=== PATIENT | male | born 1980 | race African-American/Black ===

== ENCOUNTER 2018-03-04 09:01 | Observation (INO) | payer SELFPAY ==
[~2018-03-04] VITALS: Ht 185.4 cm; Wt 97.0 kg
[~2018-03-04 09:01] MED LIST: AMOX500T PO; CYCL-36 PO; DICL-86 PO; Z.0.NO CURRENT MEDS
[2018-03-04 09:15] VITALS: BP 143/83; PULSE 63; RESP 20; TEMP 98; O2SAT 100
[2018-03-04] MEDS ORDERED: METOCLOPRAMIDE HCL 10 MG/2 ML VIAL IV PUSH ONE (09:30)
[2018-03-04 09:37] VITALS: RESP 20; O2SAT 98
[2018-03-04] MEDS ORDERED: PREG25 PO (09:41)
[2018-03-04 09:43] LABS: AUTOMATED NEUTROPHIL # 2.9 TH/MM3 (1.8-7.7); BASOPHIL % 0.7 % (0.0-2.0); EOSINOPHIL % 0.6 % (0.0-4.0); HEMOGLOBIN 16.6 GM/DL (13.0-17.0); LYMPH % 38.8 % (9.0-44.0); LYMPHOCYTE # 2.5 TH/MM3 (1.0-4.8); MEAN CELL VOLUME 83.1 FL (80.0-100.0); MEAN CORPUSCULAR HEMOGLOBIN 27.5 PG (27.0-34.0); MEAN CORPUSCULAR HGB CONC 33.2 % (32.0-36.0); MONO % 13.7 % (0.0-8.0); MONOCYTE # 0.9 TH/MM3 (0-0.9); NEUT % 46.2 % (16.0-70.0); PLATELET COUNT 216 TH/MM3 (150-450); RED BLOOD COUNT 6.02 MIL/MM3 (4.50-5.90); RED CELL DISTRIBUTION WIDTH 14.5 % (11.6-17.2); WHITE BLOOD COUNT 6.4 TH/MM3 (4.0-11.0)
[2018-03-04 10:00] LABS: BICARBONATE 22.6 MEQ/L (21.0-32.0); BLOOD UREA NITROGEN 6 MG/DL (7-18); CALCIUM 8.9 MG/DL (8.5-10.1); CHLORIDE 107 MEQ/L (98-107); CREATININE 1.39 MG/DL (0.60-1.30); GLOMERULAR FILTRATION RATE 70 ML/MIN (>89); GLUCOSE,RANDOM 155 MG/DL (74-106); SODIUM (NA) 142 MEQ/L (136-145)
[2018-03-04] MEDS ORDERED: PROMETHAZINE INJ 25 MG/ML VIAL IM ONE (10:00)
[2018-03-04 10:03] LABS: TROPONIN I LESS THAN 0.02 NG/ML (0.02-0.05)
--- NOTE | 2018-03-04 10:04 | RADRPT ---
EXAM DATE: 03/04/2018 9:50 AM EDT AGE/SEX: 37 years / Male INDICATIONS: Lower abdominal and chest pain since 6am today, nausea and vomiting CLINICAL DATA: This is the patient's initial encounter. Patient reports that signs and symptoms have been present for 1 day and indicates a pain score of 10/10. MEDICAL/SURGICAL HISTORY: None. None. COMPARISON: No prior [place] exams available for comparison. FINDINGS: A single AP view of the chest demonstrates the lungs to be symmetrically aerated without evidence of mass, infiltrate or effusion. The cardiomediastinal contours are unremarkable. Osseous structures a re intact. CONCLUSION: 1. No acute cardiopulmonary disease. Electronically signed by: Lee Solano MD 03/04/2018 10:02 AM EDT
[2018-03-04] MEDS ORDERED: SODIUM CHLOR 0.9% 1000 ML INJ 1,000 ML IV ONE (10:15)
--- NOTE | 2018-03-04 10:23 | PD ---
HPI Chief Complaint: GI Complaint Time Seen by Provider: 09:49 Travel History International Travel<30 days: No Contact w/Intl Traveler<30days: No Traveled to known affect area: No History of Present Illness HPI 37 y/o male presents with nonbloody vomiting and diarrhea with intermittent abdominal cramping since last night. He denies other concurrent complaints. He states that he had Sonic last night and does not know if that is related. He states someone else went with him but they did not have the same type of food. History is limited from patient as he is currently on bedside commode with active diarrhea. PFSH Past Medical History Depression: Yes Diabetes: Yes Patient Takes Glucophage: No Diminished Hearing: No Tetanus Vaccination: Unknown Influenza Vaccination: No Past Surgical History Surgical History: No Previous Surgery Social History Alcohol Use: Yes (OCASSIONALLY) Tobacco Use: Yes (10/10 PPD) Substance Use: Yes (MARIJUANA OCCASIONAL) Allergies-Medications (Allergen,Severity, Reaction): Coded Allergies: No Known Allergies (Unverified Allergy, Unknown, 03/04/18) Reported Meds & Prescriptions Reported Meds & Active Scripts Active Reported Lyrica (Pregabalin) 25 Mg Cap 25 Mg PO DAILY Review of Systems Except as stated in HPI: all other systems reviewed are Neg Physical Exam Exam Limitations: Other: (On bedside commode) Narrative GENERAL: 37-year-old male in no apparent distress SKIN: Focused skin assessment warm/dry. HEAD: Atraumatic. Normocephalic. EYES: Pupils equal and round. No scleral icterus. No injection or drainage. ENT: No nasal bleeding or discharge. Mucous membranes pink and moist. NECK: Trachea midline. No JVD. CARDIOVASCULAR: Regular rate and rhythm. RESPIRATORY: No accessory muscle use. Clear to auscultation. Breath sounds equal bilaterally. GASTROINTESTINAL: Abdomen soft, non-tender, nondistended. MUSCULOSKELETAL: No obvious deformities. No clubbing. No cyanosis. No edema. NEUROLOGICAL: Awake and alert. No obvious cranial nerve deficits. Motor grossly within normal limits. Normal speech. PSYCHIATRIC: Appropriate mood and affect; insight and judgment normal. Data Data Last Documented VS Vital Signs Date Time Temp Pulse Resp B/P (MAP) Pulse Ox O2 Delivery O2 Flow Rate FiO2 03/04/18 10:30 97.5 60 19 133/98 (110) 98 Room Air Orders Orders Electrocardiogram (03/04/18 09:20) Complete Blood Count With Diff (03/04/18 09:20) Basic Metabolic Panel (Bmp) (03/04/18 09:20) Ckmb (Isoenzyme) Profile (03/04/18 09:20) Troponin I (03/04/18 09:20) Chest, Single Ap (03/04/18 09:20) Iv Access Insert/Monitor (03/04/18 09:20) Ecg Monitoring (03/04/18 09:20) Oxygen Administration (03/04/18 09:20) Oximetry (03/04/18 09:20) Metoclopramide Inj (Reglan Inj) (03/04/18 09:30) Lipase (03/04/18 09:29) Hepatic Functional Panel (03/04/18:29) Drug Screen, Random Urine (03/04/18 09:42) Promethazine Inj (Phenergan Inj) (03/04/18 10:00) CKMB (03/04/18 09:30) CKMB% (03/04/18 09:30) Sodium Chlor 0.9% 1000 Ml Inj (Ns 1000 M (03/04/18 10:15) Pregabalin (Lyrica) (03/05/18 09:00) Admit Order (Ed Use Only) (03/04/18 11:47) Labs Laboratory Tests Test 03/04/18 09:30 White Blood Count 6.4 TH/MM3 Red Blood Count 6.02 MIL/MM3 Hemoglobin 16.6 GM/DL Hematocrit 50.0 % Mean Corpuscular Volume 83.1 FL Mean Corpuscular Hemoglobin 27.5 PG Mean Corpuscular Hemoglobin Concent 33.2 % Red Cell Distribution Width 14.5 % Platelet Count 216 TH/MM3 Mean Platelet Volume 9.0 FL Neutrophils (%) (Auto) 46.2 % Lymphocytes (%) (Auto) 38.8 % Monocytes (%) (Auto) 13.7 % Eosinophils (%) (Auto) 0.6 % Basophils (%) (Auto) 0.7 % Neutrophils # (Auto) 2.9 TH/MM3 Lymphocytes # (Auto) 2.5 TH/MM3 Monocytes # (Auto) 0.9 TH/MM3 Eosinophils # (Auto) 0.0 TH/MM3 Basophils # (Auto) 0.0 TH/MM3 CBC Comment DIFF FINAL Differential Comment Blood Urea Nitrogen 6 MG/DL Creatinine 1.39 MG/DL Random Glucose 155 MG/DL Calcium Level 8.9 MG/DL Sodium Level 142 MEQ/L Potassium Level 3.6 MEQ/L Chloride Level 107 MEQ/L Carbon Dioxide Level 22.6 MEQ/L Anion Gap 12 MEQ/L Estimat Glomerular Filtration Rate 70 ML/MIN Total Bilirubin 0.3 MG/DL Direct Bilirubin 0.1 MG/DL Indirect Bilirubin 0.2 MG/DL Aspartate Amino Transf (AST/SGOT) 18 U/L Alanine Aminotransferase (ALT/SGPT) 31 U/L Alkaline Phosphatase 81 U/L Total Creatine Kinase 223 U/L Creatine Kinase MB 1.2 NG/ML Troponin I LESS THAN 0.02 NG/ML Total Protein 7.5 GM/DL Albumin 3.8 GM/DL Lipase 98 U/L [facility] Medical Decision Making Medical Screen Exam Complete: Yes Emergency Medical Condition: Yes Medical Record Reviewed: Yes (Past history confirmed) Interpretation(s) CBC & BMP Diagram 03/04/18 09:30 Calcium Level 8.9 Differential Diagnosis Gastroenteritis, colitis, dehydration Narrative Course We will add on LFTs and lipase to original protocol ordered and give Phenergan as patient is vomiting despite 8 mg of Zofran and 10 mg of Reglan Patient still vomiting despite Phenergan and multiple medications. Will place in observation Physician Communication Physician Communication dr brock agrees to admit Diagnosis Primary Impression: Vomiting and diarrhea Admitting Information Admitting Physician Requests: Observation Sena Valenzuela MD March 04, 2018 10:23
[2018-03-04 10:30] VITALS: BP 133/98; PULSE 60; RESP 19; TEMP 97.5; O2SAT 98
[2018-03-04 11:20] LABS: ALBUMIN 3.8 GM/DL (3.4-5.0); DIRECT BILIRUBIN ADULT 0.1 MG/DL (0.0-0.2)
[2018-03-04 11:21] LABS: INDIRECT BILIRUBIN 0.2 MG/DL (0.0-0.8); TOTAL BILIRUBIN ADULT 0.3 MG/DL (0.2-1.0); TOTAL PROTEIN 7.5 GM/DL (6.4-8.2)
--- NOTE | 2018-03-04 11:48 | HHI.HP ---
[facility] No Primary Care Physician Admission Diagnosis Intractable vomiting and diarrhea Diagnoses: Chief Complaint: nausea/vomiting Travel History International Travel<30 Days: No Contact w/Intl Traveler <30 Da: No Traveled to Known Affected Are: No History of Present Illness 37 y/o male with past medical history of diabetes mellitus with neuropathy not on medications for diabetes is taking Lyrica for neuropathy. The patient presents with nonbloody vomiting and diarrhea, with intermittent abdominal cramping since last night. He ate a hamburger yesterday at a fast food restaurant. He denies other concurrent complaints. He states someone else went with him but they did not have the same type of food. The patient is a poor historian. No fever. Had chills. No urinary complaints. Denies chest pain or shortness of breath. No cough. Review of Systems ROS Limitations: Clinical Condition, Poor Historian Except as stated in HPI: all other systems reviewed are Neg Past Family Social History Past Medical History Diabetes, neuropathy Past Surgical History No surgeries in the past Allergies: Coded Allergies: No Known Allergies (Unverified Allergy, Unknown, 03/04/18) Family History Father with liver problems unspecified Social History Tobacco use, occasional marijuana use. Alcohol use in the weekend Physical Exam Vital Signs Vital Signs Date Time Temp Pulse Resp B/P (MAP) Pulse Ox O2 Delivery O2 Flow Rate FiO2 03/04/18 10:30 97.5 60 19 133/98 (110) 98 Room Air 03/04/18 09:37 20 98 Room Air 03/04/18 09:15 98.0 63 20 143/83 (103) 100 Physical Exam GENERAL: This is a well-nourished, well-developed patient, in no apparent distress. SKIN: No rashes, ecchymoses or lesions. Cool and dry. HEAD: Atraumatic. Normocephalic. No temporal or scalp tenderness. EYES: Pupils equal round and reactive. Extraocular motions intact. No scleral icterus. No injection or drainage. ENT: Nose without bleeding, purulent drainage or septal hematoma. Throat without erythema, tonsillar hypertrophy or exudate. Uvula midline. Airway patent. NECK: Trachea midline. No JVD or lymphadenopathy. Supple, nontender, no meningeal signs. CARDIOVASCULAR: Regular rate and rhythm without murmurs, gallops, or rubs. RESPIRATORY: Clear to auscultation. Breath sounds equal bilaterally. No wheezes , rales, or rhonchi. GASTROINTESTINAL: Abdomen soft, non-tender, nondistended. No hepato-splenomegaly , or palpable masses. No guarding. MUSCULOSKELETAL: Extremities without clubbing, cyanosis, or edema. No joint tenderness, effusion, or edema noted. No calf tenderness. Negative Homans sign bilaterally. NEUROLOGICAL: Awake and alert. Cranial nerves II through XII intact. Motor and sensory grossly within normal limits. Five out of 5 muscle strength in all muscle groups. Normal speech. Laboratory Laboratory Tests Test 03/04/18 09:30 White Blood Count 6.4 Red Blood Count 6.02 Hemoglobin 16.6 Hematocrit 50.0 Mean Corpuscular Volume 83.1 Mean Corpuscular Hemoglobin 27.5 Mean Corpuscular Hemoglobin Concent 33.2 Red Cell Distribution Width 14.5 Platelet Count 216 Mean Platelet Volume 9.0 Neutrophils (%) (Auto) 46.2 Lymphocytes (%) (Auto) 38.8 Monocytes (%) (Auto) 13.7 Eosinophils (%) (Auto) 0.6 Basophils (%) (Auto) 0.7 Neutrophils # (Auto) 2.9 Lymphocytes # (Auto) 2.5 Monocytes # (Auto) 0.9 Eosinophils # (Auto) 0.0 Basophils # (Auto) 0.0 CBC Comment DIFF FINAL Differential Comment Blood Urea Nitrogen 6 Creatinine 1.39 Random Glucose 155 Calcium Level 8.9 Sodium Level 142 Potassium Level 3.6 Chloride Level 107 Carbon Dioxide Level 22.6 Anion Gap 12 Estimat Glomerular Filtration Rate 70 Total Bilirubin 0.3 Direct Bilirubin 0.1 Indirect Bilirubin 0.2 Aspartate Amino Transf (AST/SGOT) 18 Alanine Aminotransferase (ALT/SGPT) 31 Alkaline Phosphatase 81 Total Creatine Kinase 223 Creatine Kinase MB 1.2 Troponin I LESS THAN 0.02 Total Protein 7.5 Albumin 3.8 Lipase 98 Result Diagram: 03/04/1892903/04/18 09 Imaging Last Impressions Chest X-Ray 03/04/18 09 Signed Impressions: CONCLUSION: 1. No acute cardiopulmonary disease. Caprini VTE Risk Assessment Caprini VTE Risk Assessment: Mod/High Risk (score >= 2) Caprini Risk Assessment Model Point Value = 1 Point Value = 2 Point Value = 3 Point Value = 5 Age 41-60 Minor surgery BMI > 25 kg/m2 Swollen legs Varicose veins or History of unexplained or recurrent spontaneous Oral contraceptives or hormone replacement Sepsis (< 1 month) Serious lung disease, including pneumonia (< 1 month) Abnormal pulmonary function Acute myocardial infarction Congestive heart failure (< 1 month) History of inflammatory bowel disease Medical patient at bed rest Age 61-74 Arthroscopic surgery Major open surgery (> 45 min) Laparoscopic surgery (> 45 min) Malignancy Confined to bed (> 72 hours) Immobilizing plaster cast Central venous access Age >= 75 History of VTE Family history of VTE Factor V Leiden Prothrombin [id number] Lupus anticoagulant Anticardiolipin antibodies Elevated serum homocysteine Heparin-induced thrombocytopenia Other congenital or acquired thrombophilia Stroke (< 1 month) Elective arthroplasty Hip, pelvis, or leg fracture Acute spinal cord injury (< 1 month) Prophylaxis Regimen Total Risk Factor Score Risk Level Prophylaxis Regimen 0-1 Low Early ambulation 2 Moderate Order ONE of the following: *Sequential Compression Device (SCD) *Heparin 5000 units SQ BID 3-4 Higher Order ONE of the following medications: *Heparin 5000 units SQ TID *Enoxaparin/Lovenox 40 mg SQ daily (WT < 150 kg, CrCl > 30 mL/min) *Enoxaparin/Lovenox 30 mg SQ daily (WT < 150 kg, CrCl > 10-29 mL/min) *Enoxaparin/Lovenox 30 mg SQ BID (WT < 150 kg, CrCl > 30 mL/min) AND/OR *Sequential Compression Device (SCD) 5 or more Highest Order ONE of the following medications: *Heparin 5000 units SQ TID (Preferred with Epidurals) *Enoxaparin/Lovenox 40 mg SQ daily (WT < 150 kg, CrCl > 30 mL/min) *Enoxaparin/Lovenox 30 mg SQ daily (WT < 150 kg, CrCl > 10-29 mL/min) *Enoxaparin/Lovenox 30 mg SQ BID (WT < 150 kg, CrCl > 30 mL/min) AND *Sequential Compression Device (SCD) Assessment and Plan Assessment and Plan 37-year-old male with history of diabetes, neuropathy Abdominal pain poss 2/2 Gastroenteritis PANCHO due to dehydration Diabetes mellitus with neuropathy patient says he is not eating any medications for diabetes at this time. Patient also with neuropathy is taking. Will check A1c. Accu-Cheks, insulin sliding scale. Stool studies pending. Check c diff Clear liquid diet. Advance diet as tolerated Aggressive IV fluids with normal saline 125 cc/h. Monitor urine output. Monitor kidney function. Avoid nephrotoxins Monitor electrolytes closely and replenish as needed Antiemetics as needed Pain meds per pain scale [place] PO and morphine IV if can;t take PO or severe pain DVT prophylaxis ambulation, SCDs Discussed Condition With Patient, nurse, ED physician Orquidea Townsend MD March 04, 2018 11:48
[2018-03-04] MEDS ORDERED: LOPERAMIDE HCL 2 MG CAP PO PRN (12:00)
[2018-03-04] MEDS ORDERED: SODIUM CHLORIDE 0.9% FLUSH 10 ML FLUSH IV FLUSH PRN (12:00)
[2018-03-04] MEDS: SODIUM CHLOR 0.9% 1000 ML INJ 1,000 ML IV SCH ×2 (12:00→20:06)
[2018-03-04] MEDS ORDERED: DIPHENOXYLATE/ATROPINE 2.5 MG/0.025 MG TAB PO PRN (12:00)
[2018-03-04] MEDS: LACTOBACILLUS ACIDOPHILUS TAB PO SCH ×2 (12:00→20:04)
[2018-03-04] MEDS ORDERED: ACETAMINOPHEN/HYDROcodone 325 MG/5 MG TAB PO PRN (12:15)
[2018-03-04] MEDS: ONDANSETRON ODT 4 MG TAB PO PRN ×2 (12:31→20:04)
[2018-03-04] MEDS: MORPHINE SULFATE 4 MG/ML INJ IV PUSH PRN ×2 (12:31→17:08)
--- NOTE | 2018-03-04 12:43 | PD.PN.STU ---
Subjective Remarks HPI: 37-year-old male presents to the ED with nausea, vomiting, and diarrhea since ~ 645 this morning. He has had 4 episodes of diarrhea that is loose and watery, with no blood or mucus. He is vomiting small amounts constantly, and reports it is now clear yellow. Says there are small streaks of blood in the vomitus. He reports 10/10 LLQ pain that is crampy, and sharp pains that come intermittently. It does not radiate. He reports sweats and chills for the past hour. Denies chest pain, headache, shortness of breath, urinary symptoms. He has not eaten since dinner last night, which was a [employer] cheeseburger with onions. His significant other ate with him but did not eat the same meal. He drinks alcohol ~1x/week but has not had anything to drink in the past few days. Denies recent travel, denies sick contacts. He is not currently working. Usually, he has regular bowel movements every morning without constipation or diarrhea. His mother told him he had issues with his pancreas as a child but he is unsure of the specifics as it was many years ago. He was diagnosed with type II DM three years ago, and the only medication he takes is Lyrica for neuropathy. No history of abdominal surgeries. PMHx: DM type II Neuropathy Meds: Pregabalin 20mg daily Allergies: NKA Surgical Hx: None Social Hx: Current cigarette smoker Social EtOH, ~1x/week Occasional marijuana Denies other illicit drugs FHx: Father has history of liver disease, unspecified No family history of inflammatory bowel disease Objective Vitals Vital Signs Date Time Temp Pulse Resp B/P (MAP) Pulse Ox O2 Delivery O2 Flow Rate FiO2 03/04/18 10:30 97.5 60 19 133/98 (110) 98 Room Air 03/04/18 09:37 20 98 Room Air 03/04/18 09:15 98.0 63 20 143/83 (103) 100 I/O 03/03/18 03/03/18 03/03/18 03/04/18 03/04/18 03/04/18 07:00 15:00 23:00 07:00 15:00 23:00 Intake Total 1000 ml Balance 1000 ml Intake IV Total 1000 ml Result Diagram: 5/29/18 0930 5/29/18 0930 Imaging Last 24 hours Impressions Chest X-Ray 03/04/18 0920 Signed Impressions: CONCLUSION: 1. No acute cardiopulmonary disease. Objective Remarks Laboratory Tests Test 03/04/18 09:30 White Blood Count 6.4 TH/MM3 Red Blood Count 6.02 MIL/MM3 Hemoglobin 16.6 GM/DL Hematocrit 50.0 % Mean Corpuscular Volume 83.1 FL Mean Corpuscular Hemoglobin 27.5 PG Mean Corpuscular Hemoglobin Concent 33.2 % Red Cell Distribution Width 14.5 % Platelet Count 216 TH/MM3 Mean Platelet Volume 9.0 FL Neutrophils (%) (Auto) 46.2 % Lymphocytes (%) (Auto) 38.8 % Monocytes (%) (Auto) 13.7 % Eosinophils (%) (Auto) 0.6 % Basophils (%) (Auto) 0.7 % Neutrophils # (Auto) 2.9 TH/MM3 Lymphocytes # (Auto) 2.5 TH/MM3 Monocytes # (Auto) 0.9 TH/MM3 Eosinophils # (Auto) 0.0 TH/MM3 Basophils # (Auto) 0.0 TH/MM3 CBC Comment DIFF FINAL Differential Comment Blood Urea Nitrogen 6 MG/DL Creatinine 1.39 MG/DL Random Glucose 155 MG/DL Calcium Level 8.9 MG/DL Sodium Level 142 MEQ/L Potassium Level 3.6 MEQ/L Chloride Level 107 MEQ/L Carbon Dioxide Level 22.6 MEQ/L Anion Gap 12 MEQ/L Estimat Glomerular Filtration Rate 70 ML/MIN Total Bilirubin 0.3 MG/DL Direct Bilirubin 0.1 MG/DL Indirect Bilirubin 0.2 MG/DL Aspartate Amino Transf (AST/SGOT) 18 U/L Alanine Aminotransferase (ALT/SGPT) 31 U/L Alkaline Phosphatase 81 U/L Total Creatine Kinase 223 U/L Creatine Kinase MB 1.2 NG/ML Troponin I LESS THAN 0.02 NG/ML Total Protein 7.5 GM/DL Albumin 3.8 GM/DL Lipase 98 U/L Inpatient Medications Acetaminophen/ Hydrocodone Bitart ([place] 5-325 Mg) 1 tab Q4H PRN PO PAIN 2-5; Start 03/04/18 at 12:15 Diphenoxylate HCl/ Atropine (Lomotil Tab) 1 tab Q6H PRN PO DIARRHEA if imodium doesnt wor; Start 03/04/18 at 12:00 Lactobacillus Acidophilus (Lactinex) 1 tab Q8H PO ; Start 03/04/18 at 12:00 Loperamide HCl (Imodium) 2 mg UNSCH PRN PO DIARRHEA; Start 03/04/18 at 12:00; Status UNV Metoclopramide HCl (Reglan Inj) 5 mg Q8HR IV PUSH ; Start 03/04/18 at 14:00 Morphine Sulfate (Morphine Inj) 2 mg Q4H PRN IV PUSH PAIN 6-10 or can't lana PO ; Start 03/04/18 at 12:15 Ondansetron HCl (Zofran Odt) 4 mg Q6H PRN PO NAUSEA; Start 03/04/18 at 12:00 Pregabalin (Lyrica) 25 mg DAILY PO ; Start 03/05/18 at 09:00 Promethazine HCl (Phenergan Inj) 25 mg ONCE ONCE IM Last administered on at 10:23; Start 03/04/18 at 10:00; Stop 03/04/18 at 10:01; Status DC Sodium Chloride 1,000 ml @ 125 mls/hr Q8H IV ; Start 03/04/18 at 12:00 Sodium Chloride (NS Flush) 2 ml BID IV FLUSH ; Start 03/04/18 at 21:00 EXAM: GENERAL: Well-developed, well-nourished young male in NAD but with obvious pain , lying in bed. SKIN: Warm and dry. HEAD: Atraumatic. Normocephalic. EYES: Pupils equal and round. No scleral icterus. No injection or drainage. ENT: Mucous membranes pink and moist. CARDIOVASCULAR: Regular rate and rhythm. Normal S1/S2. No murmurs, rubs, gallops. RESPIRATORY: No accessory muscle use. Clear to auscultation. Breath sounds equal bilaterally. GASTROINTESTINAL: Abdomen soft, nondistended. Bowel sounds diffusely diminished. Tenderness to palpation over lower abdomen, localized to the LLQ. No rebound tenderness. MUSCULOSKELETAL: Extremities without clubbing, cyanosis, or edema. No obvious deformities. NEUROLOGICAL: Awake and alert. No obvious cranial nerve deficits. Motor grossly within normal limits. Normal speech but moaning in pain. A/P Assessment and Plan 37-year-old male presents to the ED with nausea, vomiting, and loose, nonbloody diarrhea since ~645 this morning. He has bilious vomiting with small streaks of blood. He reports 10/10 LLQ pain that is crampy, and intermittent sharp pains that do not radiate. He reports sweats and chills with no chest pain, headache, shortness of breath, urinary symptoms. He ate a [employer] cheeseburger with onions last night and developed symptoms this morning. He drinks alcohol ~1x/week but has not had anything to drink in the past few days. Denies recent travel, denies sick contacts. 1. Abdominal pain with nausea/vomiting/diarrhea - probable gastroenteritis Pt was given zofran, reglan for nausea He reports severe LLQ pain which is the most bothersome for him Ordered PO norco for pain, IV morphine if he cannot tolerate PO Labs showed normal CBC, CMP, LFTs Has distant history of unspecified pancreatic issues as a child - ordered amylase and lipase though pain is not epigastric Order stool assay for infectious toxins, stool O&P No history of abdominal surgery Clear liquid diet Admit to observation 2. PANCHO Creatinine elevated at 1.39 IV NS 125mL/hour to replace fluid losses Will monitor electrolytes 3. DM type II with neuropathy Random BG 155 Continue home pregabalin SSI as needed Case discussed at length with Russ Johnson MS IV . Note above reviewed and agree with above. Russ Johnson M3 March 04, 2018 12:43 Orquidea Welch MD March 04, 2018 18:54
[2018-03-04] MEDS ORDERED: DEXTROSE 50% IN WATER 50 ML VIAL(D50) IV PUSH PRN (12:45)
[2018-03-04] MEDS ORDERED: GLUCAGON 1 MG/ML VIAL OTHER PRN (12:45)
[2018-03-04 13:05] VITALS: BP 116/62; PULSE 54; RESP 18; TEMP 98.9; O2SAT 100
[2018-03-04] MEDS: METOCLOPRAMIDE HCL 10 MG/2 ML VIAL IV PUSH SCH ×2 (14:32→21:39)
[2018-03-04 16:14] VITALS: BP 127/62; PULSE 55; RESP 18; TEMP 97.8; O2SAT 100
[2018-03-04] MEDS: INSULIN ASPART SUPPLEMENTAL SCALE SQ SCH ×2 (17:00→21:00)
[2018-03-04 19:52] VITALS: BP 110/62; PULSE 76; RESP 18; TEMP 99.4; O2SAT 100
[2018-03-04] MEDS: SODIUM CHLORIDE 0.9% FLUSH 10 ML FLUSH IV FLUSH SCH (20:06)
[2018-03-05] VITALS: BP 92/51; PULSE 57; RESP 18; TEMP 98.9; O2SAT 98
[2018-03-05 01:10] VITALS: BP 100/63
[2018-03-05] MEDS: MORPHINE SULFATE 4 MG/ML INJ IV PUSH PRN (01:25)
[2018-03-05] MEDS: ONDANSETRON ODT 4 MG TAB PO PRN (01:27)
[2018-03-05] MEDS: SODIUM CHLOR 0.9% 1000 ML INJ 1,000 ML IV SCH (03:20)
[2018-03-05] MEDS ORDERED: TRIMETHOBENZAMIDE INJ 200 MG/2 ML VIAL IM PRN (03:30)
[2018-03-05 04:00] VITALS: BP 93/57; PULSE 61; RESP 18; TEMP 98.7; O2SAT 98
[2018-03-05] MEDS: LACTOBACILLUS ACIDOPHILUS TAB PO SCH (05:17)
[2018-03-05] MEDS: METOCLOPRAMIDE HCL 10 MG/2 ML VIAL IV PUSH SCH (06:00)
[2018-03-05 07:02] LABS: AUTOMATED NEUTROPHIL # 8.9 TH/MM3 (1.8-7.7); BASOPHIL # 0.1 TH/MM3 (0-0.2); BASOPHIL % 0.5 % (0.0-2.0); HEMATOCRIT 42.1 % (39.0-51.0); HEMOGLOBIN 13.7 GM/DL (13.0-17.0); LYMPH % 15.8 % (9.0-44.0); LYMPHOCYTE # 1.9 TH/MM3 (1.0-4.8); MEAN CELL VOLUME 82.6 FL (80.0-100.0); MEAN CORPUSCULAR HGB CONC 32.6 % (32.0-36.0); MEAN PLATELET VOLUME 9.2 FL (7.0-11.0); MONO % 8.9 % (0.0-8.0); NEUT % 74.8 % (16.0-70.0); PLATELET COUNT 163 TH/MM3 (150-450); RED CELL DISTRIBUTION WIDTH 14.5 % (11.6-17.2); WHITE BLOOD COUNT 11.8 TH/MM3 (4.0-11.0)
[2018-03-05 07:26] VITALS: BP 107/65; PULSE 50; RESP 18; TEMP 97.3; O2SAT 98
[2018-03-05 07:29] LABS: BICARBONATE 25.4 MEQ/L (21.0-32.0); CALCIUM 8.6 MG/DL (8.5-10.1); CREATININE 0.92 MG/DL (0.60-1.30)
[2018-03-05] MEDS: INSULIN ASPART SUPPLEMENTAL SCALE SQ SCH (08:00)
[2018-03-05] MEDS: SODIUM CHLORIDE 0.9% FLUSH 10 ML FLUSH IV FLUSH SCH (09:00)
[2018-03-05] MEDS ORDERED: PREGABALIN 25 MG CAP PO SCH (09:00)
--- NOTE | 2018-03-05 09:57 | HHI.PR ---
Subjective Remarks Follow up nausea/vomiting. The patient states that he feels much better today. He did get some nausea medication this morning, but has not required it over the past few hours. He is able to tolerate liquids by mouth. No diarrhea. He wants to go home today. Objective Vitals Vital Signs Date Time Temp Pulse Resp B/P (MAP) Pulse Ox O2 Delivery O2 Flow Rate FiO2 03/05/18 07:26 97.3 50 18 107/65 (79) 98 03/05/18 04:00 98.7 61 18 93/57 (69) 98 03/05/18 01:30 19 03/05/18 01:10 100/63 (75) 03/05/18 00:00 98.9 57 18 92/51 (65) 98 03/04/18 19:52 99.4 76 18 110/62 (78) 100 03/04/18 16:14 97.8 55 18 127/62 (83) 100 03/04/18 13:05 98.9 54 18 116/62 (80) 100 03/04/18 10:30 97.5 60 19 133/98 (110) 98 Room Air I/O 03/04/18 03/04/18 03/04/18 03/05/18 03/05/18 03/05/18 07:00 15:00 23:00 07:00 15:00 23:00 Intake Total 1000 ml 240 ml 0 ml Output Total 200 ml 400 ml Balance 1000 ml 40 ml -400 ml Intake Oral 240 ml 0 ml IV Total 1000 ml Output Emesis 200 ml 400 ml # Voids 2 2 # Bowel Movements 2 Result Diagram: 03/05/18 0608 03/05/18 0608 Imaging Last Impressions Chest X-Ray 03/04/18 0920 Signed Impressions: CONCLUSION: 1. No acute cardiopulmonary disease. Objective Remarks General: No acute distress. Heart: Regular rate and rhythm. No murmur. Lungs: Clear to auscultation bilaterally. No wheezes, rales, or rhonchi. Breathing is nonlabored. Abdomen: Soft, nontender, nondistended. Extremities: No lower extremity edema. Psych: Alert and oriented. Neuro: Normal speech. No focal deficits noted. Procedures None Urinary Catheter: No Vascular Central Line Catheter: No A/P Assessment and Plan 1. Abdominal pain, nausea, vomiting: Likely gastroenteritis. Symptoms have improved. Patient wants to go home. He is tolerating liquids by mouth. 2. Diabetes mellitus with peripheral neuropathy: Continue Lyrica. Diabetes is diet controlled. 3. Acute kidney injury secondary to dehydration: Improved with IV fluids. 4. Leukocytosis: Likely stress reaction versus secondary to gastroenteritis. Patient is afebrile. Discharge Planning Discharge home in stable condition. Heart healthy, diabetic diet. Activity as tolerated. Armando Perez MD March 05, 2018 09:57
--- NOTE | 2018-03-05 09:59 | HHI.DCPOC ---
Discharge Care Plan Diagnosis: (1) Diabetes mellitus (2) Acute kidney injury (3) Leukocytosis (4) Abdominal pain (5) Vomiting and diarrhea Goals to Promote Your Health * To prevent worsening of your condition and complications * To maintain your health at the optimal level Directions to Meet Your Goals Take your medications as prescribed Follow your dietary instruction Follow activity as directed Keep your appointments as scheduled Take your immunizations and boosters as scheduled If your symptoms worsen call your PCP, if no PCP go to Urgent Care Center or Emergency Room Smoking is Dangerous to Your Health. Avoid second hand smoke Call the 24-hour hour crisis hotline for domestic abuse at Armando Perez MD March 05, 2018 09:59
--- NOTE | 2018-03-05 14:33 | EKG ---
Date Performed: 03/04/2018 Time Performed: 09:28:31 PTAGE: 37 years EKG: Sinus rhythm NORMAL ECG NO PREVIOUS TRACING DOCTOR: Roosevelt Panchal Interpretating Date/Time 03/05/2018 14:31:29
== END 2018-03-05 11:08 | disposition home or self-care (01) ==
LOC: NEPE 09:01 → NEDA 11:49 → NEPGCP 12:55
PROVIDERS: ADMIT Family Medicine; ATTEND Family Medicine
DX: R11.2 Nausea with vomiting, unspecified (principal); E11.42 Type 2 diabetes mellitus with diabetic polyneuropathy; N17.9 Acute kidney failure, unspecified; D72.829 Elevated white blood cell count, unspecified; D10.9 Benign neoplasm of pharynx, unspecified; F32.9 Major depressive disorder, single episode, unspecified; F12.90 Cannabis use, unspecified, uncomplicated; F17.210 Nicotine dependence, cigarettes, uncomplicated; R68.83 Chills (without fever); E86.0 Dehydration
CPT/HCPCS: 71045; 80048; 80076; 82150; 82550; 82552; 82948; 83036; 83690; 84484; 85025; 93005; 96361; 96372; 96374; 96375; 96376; 99285; G0378; J1815; J2270; J2550; J2765; J3250; J7030